=== PATIENT | male | born 1950 | race Caucasian/White ===

== ENCOUNTER 2016-09-04 19:50 | Emergency (ER) | payer MEDICARE, MEDICAID ==
[2016-09-04] MEDS ORDERED: NEXIUM40 M1 PO (20:16)
[2016-09-04] MEDS ORDERED: DIOVAN160 M1 PO (20:17)
[2016-09-04] MEDS ORDERED: FENOFIBRATE PO (20:18)
[2016-09-04] MEDS ORDERED: PLAVIX75 M1 PO (20:18)
[2016-09-04] MEDS ORDERED: NORVASC10 M2 PO (20:19)
[2016-09-04] MEDS ORDERED: LIPITOR80 M1 PO (20:19)
[2016-09-04] MEDS ORDERED: NEURONTIN300 M1 PO (20:20)
== END 2016-09-04 21:20 ==
LOC: EDMED 19:50
DX: L76.21 Postprocedural hemorrhage of skin and subcutaneous tissue following a dermatologic procedure (principal); I10 Essential (primary) hypertension; J44.9 Chronic obstructive pulmonary disease, unspecified; I25.10 Atherosclerotic heart disease of native coronary artery without angina pectoris